=== PATIENT | male | born 1970 | race Caucasian/White ===

== ENCOUNTER 2021-04-12 18:15 | Inpatient (IN) | payer SELFPAY ==
[~2021-04-12] VITALS: Ht 175.3 cm; Wt 80.6 kg
[~2021-04-12 18:15] MED LIST: ASPI325T11 PO; ATOR20TA58 PO; CARV6.2511 PO; CLOP75TA PO; LISI10TA16 PO; LISI20TA18 PO; NITR0.4T24 SL
--- NOTE | 2021-04-12 19:26 | PHYS DOC ---
Past Medical History Past Medical History: Heart Disease, Hypertension Past Surgical History: Other Additional Past Surgical Histo: patient had tip of index finger on the right h and removed Smoking Status: Current Every Day Smoker Alcohol Use: Occasionally Drug Use: Amphetamine, Heroin General Adult EDM: Chief Complaint: ABDOMINAL PAIN HPI: HPI: 50-year-old male with a history of heart disease presents to the emergency department complaining of tearing abdominal pain for the last 2 days is intermittent, feels like a sharp pain and like someone tearing him across his abdomen, does not radiate from the front of his abdomen. Associated with nausea vomiting and diarrhea that has been nonbloody and nonbilious. He also reports he is having difficulty urinating over the last several days. He has never had surgery on his abdomen before. He denies any stool changes. The patient denies fever, chills, chest pain, shortness of breath, cough, recent trauma, or any other complaints. Review of Systems: Review of Systems: Review of systems is otherwise negative except for what was mentioned in the HPI. Heart Score: C/O Chest Pain: No Allergies: Allergies: Allergies Coded Allergies Type Severity Reaction Last Updated Verified Penicillins Allergy Intermediate 07/12/14 Yes codeine Allergy Intermediate 07/12/14 Yes Physical Exam: PE: Constitutional: No acute distress, non-toxic appearance. HENT: Atraumatic, bilateral external ears normal, nose normal. Eyes: PERRLA, EOMI, conjunctiva normal, no discharge. Neck: Normal range of motion, supple, no stridor. Cardiovascular: Heart rate regular rhythm. 2+ radial pulses Lungs & Thorax: No respiratory distress, symmetrical expansion. Bilateral breath sounds clear to auscultation Abdomen: Diffuse abdominal tenderness Skin: Warm, dry. Extremities: No tenderness, no cyanosis, ROM intact, no edema. Neurologic: Alert and oriented X 3, normal motor function, normal sensory function, no focal deficits noted. Non ataxic gait. GCS 15. Psychologic: Affect normal, judgment normal, mood normal. Current Patient Data: Labs: My Orders - SILAS TRONCOSO DO Procedure Category Date Status Time Cbc W Autodiff LAB 04/12/21 Complete 19:26 Ua W Microscopic LAB 04/12/21 Logged 19:26 Lipase LAB 04/12/21 Complete 19:26 Comprehensive LAB 04/12/21 Complete Metabolic Panel 19:26 Drugs Of Abuse Ur LAB 04/12/21 Logged 19:26 Iv Ringers,Lactated PHA 04/12/21 Complete 1000ml (Iv Lactated 19:30 Fentanyl Pf Vial PHA 04/12/21 Complete (Fentanyl 2ml Vial) 20:00 Ondansetron Pf PHA 04/12/21 Complete (Zofran) 20:00 Iohexol 300 Mg/Ml PHA 04/12/21 Complete (Omnipaque 300 Mg/Ml) 19:45 Contrast Given -- PHA 04/12/21 In Process Info Only (Contrast Gi 20:00 12 Lead Ekg EKG 04/12/21 Complete 19:33 Ct Angio Chest Abd CT 04/12/21 Resulted Pelvis 19:33 Iohexol 350 Mg/Ml PHA 04/12/21 Complete (Omnipaque 350 Mg/Ml) 20:15 Troponini LAB 04/12/21 Complete 20:47 Nt-Pro Bnp LAB 04/12/21 Complete 20:47 Chest Ap Only RAD 04/12/21 Resulted 20:54 Sars Cov2 ([place]) LAB 04/12/21 In Process 21:15 Sars Antigen Marilin Rapid LAB 04/12/21 Complete 21:15 Manual Differential LAB 04/12/21 Complete 21:00 Troponini LAB 04/12/21 Logged 21:32 Troponini LAB 04/13/21 Verified 00:32 Troponini LAB 04/13/21 Verified 03:32 Ketamine Hcl In Nacl, PHA 04/12/21 Complete Iso-Osm (Ketamine) 22:00 Fentanyl Pf Vial PHA 04/12/21 Complete (Fentanyl 2ml Vial) 22:00 Fentanyl Pf Vial PHA 04/12/21 Complete (Fentanyl 2ml Vial) 22:00 Iv Normal Saline PHA 04/12/21 In Process 1000ml Bag (Iv Sodium 22:00 Partial LAB 04/12/21 Logged Thromboplastin Time 21:58 Protime With Inr LAB 04/12/21 Logged 21:58 Heparin ROSA 04/12/21 In Process Administration Instruc 21:59 Notify Provider ROSA 04/12/21 In Process 21:59 Hemogram LAB 04/13/21 Verified 05:00 Hemogram LAB 04/15/21 Verified 05:00 Hemogram LAB 04/17/21 Verified 05:[address] Lab ROSA 04/12/21 In Process Order 21:59 Heparin For Iv Bolus PHA 04/12/21 In Process (Heparin Sodium) 22:30 Heparin PHA 04/12/21 In Process 25,000uts/250ml 22:00 Heparin For Iv Bolus PHA 04/12/21 In Process (Heparin Sodium) 22:00 Abdomen Ltd 04/12/21 Logged 21:55 Anti-Coag Monitor By [facility] 04/12/21 In Process Pharmacy (Anti-Coag 22:15 [place] Order ADT 04/12/21 Transmitted 22:03 Code Status CODE 04/12/21 Transmitted 22:03 Vital Signs, Per Unit ROSA 04/12/21 In Process Protocol 22:03 Nothing By Mouth DIET 04/13/21 Transmitted Breakfast Bedrest ROSA 04/12/21 In Process 22:03 Cbc W Autodiff LAB 04/13/21 Verified 06:00 Basic Metabolic Panel LAB 04/13/21 Verified 06:00 Ondansetron Pf PHA 04/12/21 In Process (Zofran) 22:15 Morphine Sulfate PHA 04/12/21 In Process (Morphine Sulfate) 22:15 Consult Physician By CONS 04/12/21 Transmitted Name 22:03 Consult Physician By CONS 04/12/21 Transmitted Name 22:03 Photo Producer [facility] 04/12/21 In Process 22:03 Laboratory Tests Test 04/12/21 20:35 04/12/21 21:00 04/12/21 21:35 Sodium Level 137 mmol/L (136-145) Potassium Level 4.5 mmol/L (3.5-5.1) Chloride Level 102 mmol/L (98-107) Carbon Dioxide Level 22 mmol/L (21-32) Anion Gap 13 (6-14) Blood Urea Nitrogen 37 mg/dL (8-26) Creatinine 1.4 mg/dL (0.7-1.3) Estimated GFR (Cockcroft-Gault) 53.6 BUN/Creatinine Ratio 26 (6-20) Glucose Level 121 mg/dL (70-99) Calcium Level 8.0 mg/dL (8.5-10.1) Total Bilirubin 0.7 mg/dL (0.2-1.0) Aspartate Amino Transf (AST/SGOT) 201 U/L (15-37) Alanine Aminotransferase (ALT/SGPT) 194 U/L (16-63) Alkaline Phosphatase 255 U/L (46-116) Troponin I Quantitative 8.267 ng/mL (0.000-0.055) PP-Zhg-R-Type Natriuretic Peptide 34761 pg/mL (0-124) Total Protein 6.4 g/dL (6.4-8.2) Albumin 2.5 g/dL (3.4-5.0) Albumin/Globulin Ratio 0.6 (1.0-1.7) Lipase 57 U/L (73-393) White Blood Count 14.7 x10^3/uL (4.0-11.0) Red Blood Count 3.77 x10^6/uL (4.30-5.70) Hemoglobin 11.2 g/dL (13.0-17.5) Hematocrit 33.3 % (39.0-53.0) Mean Corpuscular Volume 88 fL (79-100) Mean Corpuscular Hemoglobin 30 pg (25-35) Mean Corpuscular Hemoglobin Concent 34 g/dL (31-37) Red Cell Distribution Width 14.7 % (11.5-14.5) Platelet Count 919 x10^3/uL (140-400) Neutrophils (%) (Auto) 85 % (31-73) Lymphocytes (%) (Auto) 7 % (24-48) Monocytes (%) (Auto) 8 % (0-9) Eosinophils (%) (Auto) 0 % (0-3) Basophils (%) (Auto) 0 % (0-3) Neutrophils # (Auto) 12.5 x10^3/uL (1.8-7.7) Lymphocytes # (Auto) 1.0 x10^3/uL (1.0-4.8) Monocytes # (Auto) 1.2 x10^3/uL (0.0-1.1) Eosinophils # (Auto) 0.0 x10^3/uL (0.0-0.7) Basophils # (Auto) 0.1 x10^3/uL (0.0-0.2) Segmented Neutrophils % 87 % (35-66) Band Neutrophils % 1 % (0-9) Lymphocytes % 9 % (24-48) Monocytes % 3 % (0-10) Platelet Estimate Increased (ADEQUATE) SARS-CoV-2 Antigen (Rapid) Negative (NEGATIVE) Vital Signs: Vital Signs Date Time Temp Pulse Resp B/P (MAP) Pulse Ox O2 Delivery O2 Flow Rate FiO2 04/12/21 21:30 104 22 98 04/12/21 21:15 104 15 97 04/12/21 21:09 104 27 99 04/12/21 21:00 102 19 96 04/12/21 20:45 187 15 94 04/12/21 20:33 104 23 97 04/12/21 20:00 34 99 Nasal Cannula 2.0 04/12/21 19:51 106 32 97 04/12/21 19:49 108 32 97 04/12/21 19:49 32 98 Nasal Cannula 2.0 04/12/21 19:48 187 32 99 04/12/21 19:45 97.8 188 24 144/81 (102) 98 Room Air 97.8 04/12/21 19:30 188 04/12/21 19:21 98.7 187 32 97 98.7 EKG: EK: Supraventricular tachycardia rate of 188, no STEMI, T wave inversions are noted in the precordial leads V1 through V4 3, ST depression aVL. Impression: Supraventricular tachycardia 1953: Post synchronized cardioversion EKG: Sinus tachycardia rate of 109, T wave inversions in V5V6, 2, 3, aVF. No ST elevations, no ectopic beats, normal axis, normal CT, QRS, and QTc intervals. Impression: Sinus tachycardia. interpreted by me, Silas Troncoso D.O. Radiology/Procedures: Radiology/Procedures: Exam: Chest one view INDICATION: Line placement TECHNIQUE: Frontal view of the chest Comparisons: None FINDINGS: Right IJ catheter with tip at the SVC. Heart is mildly enlarged. Pulmonary vessels are within normal limits. The lung and pleural spaces are clear. IMPRESSION: Lines and tubes described above. Electronically signed by: Ana Naik MD (04/12/2021 9:48 PM) PROCEDURE: CT ANGIO CHEST ABD PELVIS Exam: CT of chest, abdomen and pelvis without and with contrast INDICATION: Dissection, tearing abdominal pain TECHNIQUE: Sequential axial images through the chest, abdomen and pelvis obtained before and after the administration of 80 mL of Omni 350 IV contrast. Sagittal and coronal reformatted images were reconstructed from the axial data and reviewed. Exposure: One or more of the following in the visualized dose reduction techniques were utilized for this examination: 1. Automated exposure control 2. Adjustment of the MA and/or KV according to patient size 3. Use of iterative of reconstructive technique Comparisons: Chest x-ray same day FINDINGS: Visualized portions of the thyroid are unremarkable. No enlarged mediastinal lymph nodes are identified. Heart size is normal. No pericardial effusion. Thoracic aorta has a normal course and caliber. Pulmonary artery is mildly enlarged with main pulmonary artery measuring up to 3.8 cm in diameter. Airways are patent. Strandy opacities the dependent portion lungs likely representing atelectasis. No suspicious lung nodules are identified. No pneumothorax. No pleural effusion or thickening. Evaluation of solid abdominal organs is limited secondary to arterial phase of the exam. Liver, spleen, pancreas and adrenals are unremarkable. Gallbladder is partially distended with diffuse wall thickening. No perinephric inflammation or hydronephrosis. No renal or ureteral calculi are identified. Bladder is partially distended and not well evaluated. Prostate is not enlarged. Large and small bowel are unremarkable. Appendix is not identified. No free intra-abdominal air or fluid. No obstruction. Abdominal aorta has a normal course and caliber. Abdominal vasculature is patent. No enlarged intra-abdominal lymph nodes are identified. No suspicious osseous lesions or acute fractures. IMPRESSION: 1. Normal appearance of the aorta without evidence for dissection, aneurysm or intramural hematoma. 2. Diffuse gallbladder wall thickening. Correlate with symptomatology to de termine the need for further evaluation with ultrasound. 3. Small amount of perihepatic ascites which is nonspecific could be reactive to an underlying inflammatory process. Electronically signed by: Ana Naik MD (04/12/2021 9:43 PM) PROCEDURE: ABDOMEN LTD EXAM: ULTRASOUND ABDOMEN LIMITED CLINICAL HISTORY: Reason: RUQ pain, elevated transaminases, thickening on CT / Spl. Instructions: / History: COMPARISON: None available. TECHNIQUE: Limited ultrasound examination of the right upper quadrant of the abdomen was performed. FINDINGS: Liver contour is normal. Hepatopedal flow noted in the portal vein. Gallbladder is contracted with mild gallbladder wall thickening. No pericholecystic fluid or wall thickening. No gallstones. Common bile duct measures 5 mm in diameter. Right kidney measures 11.3 cm in long axis. No hydronephrosis. Visualized portions of aorta and IVC are unremarkable. IMPRESSION: 1. Diffuse gallbladder wall thickening which is nonspecific. No secondary signs for acute cholecystitis. 2. Normal sonographic appearance the liver. 3. No right-sided hydronephrosis Electronically signed by: Ana Naik MD (04/12/2021 11:01 PM) Course & Med Decision Making: Course & Med Decision Making Cardioversion procedure Indication: Unstable supraventricular tachycardia Consent: The patient provided verbal consent for this procedure. Pre-Medication: Fentanyl and ketamine Procedure: The patient was placed in the supine position and the chest area was exposed. The cardioversion pads were applied in the standard manner and configuration. The defibrillator was set on the synchronized mode and charged to 100 joules. A charge was then delivered which resulted in sinus tachycardia. The patient tolerated the procedure well. Complications: none. Central Venous Catheter Insertion Procedure Date/ Time: 04/12/20212029 Confirmed: patient, procedure, side, site, safety procedures followed. Performed by: Silas calderón DO. Informed consent: Emergent Indication: medication delivery, resuscitation. Preparation: sterile preparation of site (with 2% chlorhexidine gluconate, draped to expose affected area, with full drapes, gown, gloves and mask), vessel was identified ultrasound guided, position head turned to left. Anesthesia: local, 1% lidocaine without epinephrine, 3 ml. Technique: percutaneous, Seldinger technique used, ultrasound localization used, location: (Right, internal jugular vein), anterior approach used, catheter type (7 Sinhala, triple lumen catheter), location confirmed via flashback, catheter flushed with saline, dressing applied (catheter secured, semi-permeable transparent dressing applied), monitoring during procedure (blood pressure, cardiac, continuous pulse oximetry). Procedure tolerated: well. Findings: visualized wire in correct position in vein with ultrasound, location confirmed on post procedure chest x-ray in adequate position. Complications at the time of procedure: none. Total time: 30 minutes Patient was seen immediately in the exam room, he appeared to be in moderate distress, complaining of tearing abdominal pain. Nurses were unable to place AC IVs. The patient then went into supraventricular tachycardia with stable blood pressures but appeared unwell, complaining of severe 10/10 abdominal pain. Of note, he also mentioned that he used methamphetamine yesterday and was recently admitted to [facility] for a cardiac work-up and heart attack. A 18-gauge IV was able to be placed in the left external jugular vein. Decision was made to withhold adenosine in this case because we did not have proper IV access to use that medication. Synchronized cardioversion was performed with 100 J and was successful. Ketamine was used for pain control and sedation along with fentanyl. The patient converted to sinus tachycardia. Repeat EKG did not show any ST elevations. I discussed the case with Dr. Morley who agrees with plan for dissection scan, admission. I emergently placed a right internal jugular venous catheter after 1 unsuccessful attempt at placing a peripheral ultrasound- guided IV for the CTA. Patient was then immediately sent to the CT scanner after confirmation of line placement. CT abdomen angio scan negative for dissection, I also discussed the elevated troponin of 8.[address] Morley, does not want to cath emergently, states he will see the patient in the morning. Patient did not have chest pain. US gb ordered due to abnormal findings on CT, us does not show typical findings for cholecystitis. patient was placed on a heparin drip, needed ativan for sedation (he admitted to meth use), and precedex drip. Critical care time was 50 minutes which includes time at bedside, spent in discussion of patient's care with specialists and/or family members, with interpretation of laboratory and/or radiological studies and is exclusive of procedures. Departure Departure Impression: Primary Impression: SVT (supraventricular tachycardia) Additional Impressions: Abdominal pain ACS (acute coronary syndrome) Disposition: ADMITTED INPATIENT (ICU) Admitting Physician: KIMBERLY Ventura) Referrals: LINWOOD JOHNSON DO (PCP) SILAS TRONCOSO DO Apr 12, 2021 19:26
[2021-04-12] MEDS ORDERED: IV RINGERS,LACTATED 1000ML 1,000 ML IV SCH (19:30)
[2021-04-12] MEDS ORDERED: KETAMINE HCL IN NACL, ISO-OSM 50 MG/5 ML SYRINGE ONE (19:44)
[2021-04-12] MEDS ORDERED: IOHEXOL 300 MG/ML 100ML VIAL. IV ONE (19:45)
[2021-04-12] MEDS ORDERED: ONDANSETRON PF 4 MG/2 ML VIAL. IVP ONE (20:00)
[2021-04-12] MEDS ORDERED: fentaNYL PF VIAL 100 MCG/2 ML VIAL IVP ONE ×3 (20:00→22:00)
[2021-04-12] MEDS ORDERED: CONTRAST GIVEN. MC PRN (20:00)
[2021-04-12] MEDS ORDERED: IOHEXOL 350 MG/ML 100 ML VIAL. IV ONE (20:15)
--- NOTE | 2021-04-12 20:32 | EKG ---
[facility] [address] [place] [address] Test Date: 2021-04-12 Test Time: 19:51:32 Pat Name: LUIS PARKER Department: Room: Gender: M Director Of Category Management: : 1970 Requested By: LELAND TRISATN Order Number: [id number] Reading MD: Geronimo Bates MD Measurements Intervals [place] Rate: 109 P: 96 [place]: 140 QRS: 42 QRSD: 98 T: -79 QT: 304 QTc: 411 Interpretive Statements SINUS TACHYCARDIA LEFT ATRIAL ABNORMALITY LVH WITH REPOLARIZATION ABNORMALITY ABNORMAL ECG Electronically Signed On 04-13-2021 18:44:22 CDT by Geronimo Bates MD
[2021-04-12 20:51] LABS: CREATININE 1.4 mg/dL (0.7-1.3); GFR 53.6; POTASSIUM 4.5 mmol/L (3.5-5.1)
[2021-04-12 21:00] LABS: ALBUMIN 2.5 g/dL (3.4-5.0); ALBUMIN/GLOBULIN RATIO 0.6 (1.0-1.7); TOTAL BILIRUBIN 0.7 mg/dL (0.2-1.0); TOTAL PROTEIN 6.4 g/dL (6.4-8.2)
[2021-04-12 21:08] LABS: BASO # 0.1 x10^3/uL (0.0-0.2); BASO % 0 % (0-3); EOS % 0 % (0-3); HEMATOCRIT 33.3 % (39.0-53.0); HEMOGLOBIN 11.2 g/dL (13.0-17.5); LYMPH % 7 % (24-48); MEAN CORPUSCULAR HEMOGLOBIN 30 pg (25-35); MEAN CORPUSCULAR HGB CONC 34 g/dL (31-37); MEAN CORPUSCULAR VOLUME 88 fL (79-100); MONO # 1.2 x10^3/uL (0.0-1.1); MONO % 8 % (0-9); NEUT # 12.5 x10^3/uL (1.8-7.7); NEUT % 85 % (31-73); RED BLOOD COUNT 3.77 x10^6/uL (4.30-5.70); RED CELL DISTRIBUTION WIDTH 14.7 % (11.5-14.5); WHITE BLOOD COUNT 14.7 x10^3/uL (4.0-11.0)
[2021-04-12 21:25] LABS: PLATELET COUNT 919 x10^3/uL (140-400)
[2021-04-12 21:28] LABS: % BANDS 1 % (0-9); % LYMPHS 9 % (24-48); % MONOS 3 % (0-10); % SEGS 87 % (35-66); PLT ESTIMATE INCREASED (ADEQUATE)
--- NOTE | 2021-04-12 21:46 | RAD ---
Exam: CT of chest, abdomen and pelvis without and with contrast INDICATION: Dissection, tearing abdominal pain TECHNIQUE: Sequential axial images through the chest, abdomen and pelvis obtained before and after th e administration of 80 mL of Omni 350 IV contrast. Sagittal and coronal reformatted images were recon structed from the axial data and reviewed. Exposure: One or more of the following in the visualized dose reduction techniques were utilized for this examination: 1. Automated exposure control 2. Adjustment of the MA and/or KV according to patient size 3. Use of iterative of reconstructive technique Comparisons: Chest x-ray same day FINDINGS: Visualized portions of the thyroid are unremarkable. No enlarged mediastinal lymph nodes are identifi ed. Heart size is normal. No pericardial effusion. Thoracic aorta has a normal course and caliber. Pulmon gerard artery is mildly enlarged with main pulmonary artery measuring up to 3.8 cm in diameter. Airways are patent. Strandy opacities the dependent portion lungs likely representing atelectasis. No suspicious lung nodules are identified. No pneumothorax. No pleural effusion or thickening. Evaluation of solid abdominal organs is limited secondary to arterial phase of the exam. Liver, spleen, pancreas and adrenals are unremarkable. Gallbladder is partially distended with diffus e wall thickening. No perinephric inflammation or hydronephrosis. No renal or ureteral calculi are identified. Bladder is partially distended and not well evaluated. Prostate is not enlarged. Large and small bowel are unremarkable. Appendix is not identified. No free intra-abdominal air or fl uid. No obstruction. Abdominal aorta has a normal course and caliber. Abdominal vasculature is patent. No enlarged intra-abdominal lymph nodes are identified. No suspicious osseous lesions or acute fractures. IMPRESSION: 1. Normal appearance of the aorta without evidence for dissection, aneurysm or intramural hematoma. 2. Diffuse gallbladder wall thickening. Correlate with symptomatology to determine the need for furt her evaluation with ultrasound. 3. Small amount of perihepatic ascites which is nonspecific could be reactive to an underlying infla mmatory process. Electronically signed by: Ana Naik MD (04/12/2021 9:43 PM) [facility]
--- NOTE | 2021-04-12 21:51 | RAD ---
Exam: Chest one view INDICATION: Line placement TECHNIQUE: Frontal view of the chest Comparisons: None FINDINGS: Right IJ catheter with tip at the SVC. Heart is mildly enlarged. Pulmonary vessels are within normal limits. The lung and pleural spaces are clear. IMPRESSION: Lines and tubes described above. Electronically signed by: Ana Naik MD (04/12/2021 9:48 PM) [facility]
[2021-04-12] MEDS ORDERED: IV NORMAL SALINE 1000ML BAG 1,000 ML IV ONE (22:00)
[2021-04-12] MEDS ORDERED: KETAMINE HCL IN NACL, ISO-OSM 50 MG/5 ML SYRINGE IV ONE (22:00)
[2021-04-12] MEDS ORDERED: HEPARIN for IV BOLUS 10,000 UNIT/10 ML VIAL. IV PRN (22:00)
[2021-04-12] MEDS ORDERED: ANTI-COAG MONITOR BY PHARMACY. MC PRN (22:15)
[2021-04-12] MEDS ORDERED: MORPHINE SULFATE 4 MG/ML INJ. IVP PRN (22:15)
[2021-04-12] MEDS ORDERED: ONDANSETRON PF 4 MG/2 ML VIAL. IVP PRN (22:15)
[2021-04-12] MEDS ORDERED: HEPARIN for IV BOLUS 10,000 UNIT/10 ML VIAL. IV ONE (22:30)
[2021-04-12 22:52] LABS: BILIRUBIN,URINE SMALL (NEG); CLARITY,URINE CLEAR; COLOR,URINE AMBER; NITRITE,URINE NEGATIVE (NEG); PH,URINE 5.5 (<5.0-8.0); PROTEIN,URINE 30 mg/dL (NEG-TRACE)
[2021-04-12 22:54] LABS: AMORPHOUS SEDIMENT,UR PRESENT /HPF; BACTERIA,URINE 0 /HPF (0-FEW); GRANULAR CASTS,URINE OCCASIONAL /HPF; HYALINE CASTS, URINE MODERATE /HPF; RBC,URINE 0 /HPF (0-2)
[2021-04-12 22:55] LABS: BARBITURATES NEG (NEG); BENZODIAZEPINES POS (NEG); CANNABINOIDS POS (NEG); COCAINE NEG (NEG); METHADONE NEG (NEG); OPIATES POS (NEG); PHENCYCLIDINE NEG (NEG)
[2021-04-12 22:56] LABS: AMPHETAMINE/METHAMPHETAMINE POS (NEG)
--- NOTE | 2021-04-12 23:03 | RAD ---
EXAM: ULTRASOUND ABDOMEN LIMITED CLINICAL HISTORY: Reason: RUQ pain, elevated transaminases, thickening on CT / Spl. Instructions: / History: COMPARISON: None available. TECHNIQUE: Limited ultrasound examination of the right upper quadrant of the abdomen was performed. FINDINGS: Liver contour is normal. Hepatopedal flow noted in the portal vein. Gallbladder is contracted with mild gallbladder wall thickening. No pericholecystic fluid or wall thi ckening. No gallstones. Common bile duct measures 5 mm in diameter. Right kidney measures 11.3 cm in long axis. No hydronephrosis. Visualized portions of aorta and IVC are unremarkable. IMPRESSION: 1. Diffuse gallbladder wall thickening which is nonspecific. No secondary signs for acute cholecysti tis. 2. Normal sonographic appearance the liver. 3. No right-sided hydronephrosis Electronically signed by: Ana Naik MD (04/12/2021 11:01 PM) [facility]
[2021-04-12] MEDS: HEPARIN 25,000UTS/250ML PREMIX 250 ML IV PRN (23:10)
[2021-04-12] MEDS ORDERED: DEXMEDETOMIDINE 400 MCG in IV NORMAL SALINE 100ML 96 ML IV PRN (23:30)
[2021-04-12] MEDS ORDERED: levOFLOXacin PER PHARMACY. MC PRN (23:30)
[2021-04-13] VITALS (10 sets, daily range): BP systolic 102–149; BP diastolic 53–89
--- NOTE | 2021-04-13 02:35 | EKG ---
[facility] [address] [place] [address] Test Date: 2021-04-12 Test Time: 19:39:09 Pat Name: LUIS PARKER Department: Room: Gender: M Fleet Service Manager: : 1970 Requested By: LELAND TRISTAN Order Number: [id number] Reading MD: Gernoimo Bates MD Measurements Intervals [place] Rate: 188 P: NM: QRS: -88 QRSD: 136 T: 65 QT: 278 QTc: 496 Interpretive Statements SUPRAVENTRICULAR TACHYCARDIA lafb rbbb Electronically Signed On 04-13-2021 18:46:42 CDT by Geronimo Bates MD
--- NOTE | 2021-04-13 09:41 | PDOC2 ---
GI CONSULT Date of Service: DATE: 04/13/21 TIME: 09:41 Reason For Consult: abnormal gallbladder findings HPI: HPI: 50 y/o male with mid abdominal "sick" pain daily for 10 years that is worse "with exertion." Sometimes associated w/ n/v but not always. To ER w/ worse pain than usual. Denies precipitating events. SVT, cardioversion in ER. Labs note elevated troponin and BNP. Denies reflux, dysphagia, hematemesis, diarrhea, constipation, hematochezia, melena, change in appetite, or weight loss. No previous EGD or colonoscopy. Denies GB, liver, pancreas, and PUD history. Says he had a heart attack two weeks ago and was admitted to [facility]. Can't tell me additional details - fairly drowsy in ER when I saw this morning. PMH: PMH: CAD w/ stent, HTN FH: Family History: No pertinent hx Social History: Smoke: 1 pack per day ALCOHOL: other (heavy in the past after son in an accident, less now) Drugs: Marijuana, Crystal meth, Other (tox screen +opiates +benzos) ROS: A bit difficult to obtain. GEN: Denies fevers, chills, sweats HEENT: Denies blurred vision, sore throat CV: Denies chest pain RESP: Denies shortness of air, cough GI: Per HPI : Denies hematuria, dysuria ENDO: Denies weight changes NEURO: Denies confusion, dizziness MSK: Denies weakness, joint pain/swelling SKIN: Denies jaundice, pruritus Vitals: Vitals: Vital Signs Date Time Temp Pulse Resp B/P (MAP) Pulse Ox O2 Delivery O2 Flow Rate FiO2 04/13/21 09:31 97 20 98 04/12/21 23:00 Nasal Cannula 2.0 04/12/21 19:45 97.8 144/81 (102) 97.8 Labs: Labs: Laboratory Tests Test 04/12/21 20:35 04/12/21 21:00 04/12/21 21:35 04/12/21 22:42 Sodium Level 137 mmol/L (136-145) Potassium Level 4.5 mmol/L (3.5-5.1) Chloride Level 102 mmol/L (98-107) Carbon Dioxide Level 22 mmol/L (21-32) Anion Gap 13 (6-14) Blood Urea Nitrogen 37 mg/dL (8-26) Creatinine 1.4 mg/dL (0.7-1.3) Estimated GFR (Cockcroft-Gault) 53.6 BUN/Creatinine Ratio 26 (6-20) Glucose Level 121 mg/dL (70-99) Calcium Level 8.0 mg/dL (8.5-10.1) Total Bilirubin 0.7 mg/dL (0.2-1.0) Aspartate Amino Transf (AST/SGOT) 201 U/L (15-37) Alanine Aminotransferase (ALT/SGPT) 194 U/L (16-63) Alkaline Phosphatase 255 U/L (46-116) Troponin I Quantitative 8.267 ng/mL (0.000-0.055) NQ-Vmg-O-Type Natriuretic Peptide 08915 pg/mL (0-124) Total Protein 6.4 g/dL (6.4-8.2) Albumin 2.5 g/dL (3.4-5.0) Albumin/Globulin Ratio 0.6 (1.0-1.7) Lipase 57 U/L (73-393) White Blood Count 14.7 x10^3/uL (4.0-11.0) Red Blood Count 3.77 x10^6/uL (4.30-5.70) Hemoglobin 11.2 g/dL (13.0-17.5) Hematocrit 33.3 % (39.0-53.0) Mean Corpuscular Volume 88 fL (79-100) Mean Corpuscular Hemoglobin 30 pg (25-35) Mean Corpuscular Hemoglobin Concent 34 g/dL (31-37) Red Cell Distribution Width 14.7 % (11.5-14.5) Platelet Count 919 x10^3/uL (140-400) Neutrophils (%) (Auto) 85 % (31-73) Lymphocytes (%) (Auto) 7 % (24-48) Monocytes (%) (Auto) 8 % (0-9) Eosinophils (%) (Auto) 0 % (0-3) Basophils (%) (Auto) 0 % (0-3) Neutrophils # (Auto) 12.5 x10^3/uL (1.8-7.7) Lymphocytes # (Auto) 1.0 x10^3/uL (1.0-4.8) Monocytes # (Auto) 1.2 x10^3/uL (0.0-1.1) Eosinophils # (Auto) 0.0 x10^3/uL (0.0-0.7) Basophils # (Auto) 0.1 x10^3/uL (0.0-0.2) Segmented Neutrophils % 87 % (35-66) Band Neutrophils % 1 % (0-9) Lymphocytes % 9 % (24-48) Monocytes % 3 % (0-10) Platelet Estimate Increased (ADEQUATE) SARS-CoV-2 Antigen (Rapid) Negative (NEGATIVE) Urine Collection Type Unknown Urine Color Lizet Urine Clarity Clear Urine pH 5.5 (<5.0-8.0) Urine Specific [place] >=1.030 (1.000-1.030) Urine Protein 30 mg/dL (NEG-TRACE) Urine Glucose (UA) Negative mg/dL (NEG) Urine Ketones (Stick) Negative mg/dL (NEG) Urine Blood Negative (NEG) Urine Nitrite Negative (NEG) Urine Bilirubin Small (NEG) Urine Urobilinogen Dipstick 1.0 mg/dL (0.2 mg/dL) Urine Leukocyte Esterase Negative (NEG) Urine RBC 0 /HPF (0-2) Urine WBC 1-4 /HPF (0-4) Urine Squamous Epithelial Cells Few /LPF Urine Amorphous Sediment Present /HPF Urine Bacteria 0 /HPF (0-FEW) Urine Hyaline Casts Moderate /HPF Urine Granular Casts Occasional /HPF Urine Mucus Marked /LPF Urine Opiates Screen Pos (NEG) Urine Methadone Screen Neg (NEG) Urine Barbiturates Neg (NEG) Urine Phencyclidine Screen Neg (NEG) Urine Amphetamine/Methamphetamine Pos (NEG) Urine Benzodiazepines Screen Pos (NEG) Urine Cocaine Screen Neg (NEG) Urine Cannabinoids Screen Pos (NEG) Urine Ethyl Alcohol Neg (NEG) Test 04/12/21 22:48 04/13/21 00:15 04/13/21 03:15 04/13/21 05:13 Prothrombin Time 16.0 SEC (11.7-14.0) Prothromb Time International Ratio 1.3 (0.8-1.1) Activated Partial Thromboplast Time 27 SEC (24-38) Troponin I Quantitative 12.091 ng/mL (0.000-0.055) 14.796 ng/mL (0.000-0.055) Heparin Anti-Xa Act, Unfractionated < 0.10 IU/mL (0.30-0.70) Allergies: Coded Allergies: Penicillins (Verified Allergy, Intermediate, 07/12/14) codeine (Verified Allergy, Intermediate, 07/12/14) Medications: Current Medications Medications (Trade) Dose Ordered Sig/Nabeel Route PRN Reason Start Time Stop Time Status Last Admin Dose Admin Ringer's Solution 1,000 ml @ 1,000 mls/hr Q1H IV 04/12/21 19:30 04/12/21 20:29 DC 04/12/21 21:30 Fentanyl Citrate (Fentanyl 2ml Vial) 75 mcg 1X ONCE IVP 04/12/21 20:00 04/12/21 20:01 DC 04/12/21 20:00 Ondansetron HCl (Zofran) 4 mg 1X ONCE IVP 04/12/21 20:00 04/12/21 20:01 DC 04/12/21 22:57 Iohexol (Omnipaque 350 Mg/ml) 100 ml 1X ONCE IV 04/12/21 20:15 04/12/21 20:16 DC 04/12/21 21:18 Ketamine HCl (Ketamine) 30 mg 1X ONCE IV 04/12/21 22:00 04/12/21 22:01 DC 04/12/21 21:53 Fentanyl Citrate (Fentanyl 2ml Vial) 75 mcg 1X ONCE IVP 04/12/21 22:00 04/12/21 22:01 DC 04/12/21 19:49 Sodium Chloride 1,000 ml @ 1,000 mls/hr 1X ONCE IV 04/12/21 22:00 04/12/21 22:59 DC 04/12/21 22:52 Heparin Sodium (Porcine) (Heparin Sodium) 4,000 unit 1X ONCE IV 04/12/21 22:30 04/12/21 22:31 DC 04/12/21 23:04 Heparin Sodium/ Dextrose 250 ml @ 0 mls/hr CONT PRN IV PER PROTOCOL 04/12/21 22:00 04/12/21 23:10 Heparin Sodium (Porcine) (Heparin Sodium) 1,950 unit PRN Q6HRS PRN IV FOR UFH LEVEL LESS THAN 0.2 04/12/21 22:00 9/13/21 06:13 Info (Anti-Coagulation Monitoring By Pharmacy) 1 each PRN DAILY PRN MC PER PROTOCOL 04/12/21 22:15 04/13/21 03:36 Morphine Sulfate (Morphine Sulfate) 4 mg PRN Q2HR PRN IVP SEVERE PAIN 7-10 04/12/21 22:15 04/13/21 22:14 04/12/21 23:00 Lorazepam (Ativan Inj) 2 mg 1X ONCE IVP 04/12/21 23:30 04/12/21 23:31 DC 04/12/21 23:23 Levofloxacin/ Dextrose 150 ml @ 100 mls/hr 1X ONCE IV 04/13/21 00:00 04/13/21 01:29 DC 04/13/21 00:57 Imaging: Imaging: CXR FINDINGS: Right IJ catheter with tip at the SVC. Heart is mildly enlarged. Pulmonary vessels are within normal limits. The lung and pleural spaces are clear. IMPRESSION: Lines and tubes described above. C/A/P CTA FINDINGS: Visualized portions of the thyroid are unremarkable. No enlarged mediastinal lymph nodes are identified. Heart size is normal. No pericardial effusion. Thoracic aorta has a normal course and caliber. Pulmonary artery is mildly enlarged with main pulmonary artery measuring up to 3.8 cm in diameter. Airways are patent. Strandy opacities the dependent portion lungs likely representing atelectasis. No suspicious lung nodules are identified. No pneumothorax. No pleural effusion or thickening. Evaluation of solid abdominal organs is limited secondary to arterial phase of the exam. Liver, spleen, pancreas and adrenals are unremarkable. Gallbladder is partially distended with diffuse wall thickening. No perinephric inflammation or hydronephrosis. No renal or ureteral calculi are identified. Bladder is partially distended and not well evaluated. Prostate is not enlarged. Large and small bowel are unremarkable. Appendix is not identified. No free intra-abdominal air or fluid. No obstruction. Abdominal aorta has a normal course and caliber. Abdominal vasculature is patent. No enlarged intra-abdominal lymph nodes are identified. No suspicious osseous lesions or acute fractures. IMPRESSION: 1. Normal appearance of the aorta without evidence for dissection, aneurysm or intramural hematoma. 2. Diffuse gallbladder wall thickening. Correlate with symptomatology to determine the need for further evaluation with ultrasound. 3. Small amount of perihepatic ascites which is nonspecific could be reactive to an underlying inflammatory process. Abd US FINDINGS: Liver contour is normal. Hepatopedal flow noted in the portal vein. Gallbladder is contracted with mild gallbladder wall thickening. No pericholecystic fluid or wall thickening. No gallstones. Common bile duct measures 5 mm in diameter. Right kidney measures 11.3 cm in long axis. No hydronephrosis. Visualized portions of aorta and IVC are unremarkable. IMPRESSION: 1. Diffuse gallbladder wall thickening which is nonspecific. No secondary signs for acute cholecystitis. 2. Normal sonographic appearance the liver. 3. No right-sided hydronephrosis PE: GEN: NAD HEENT: Atraumatic, PERRL LUNGS: diminished anteriorly HEART: borderline tachycardic ABD: NABS, S/ND/NT EXTREMITY: No edema SKIN: +tattoos NEURO/PSYCH: lethargic, is able to participate in history A/P: A/P: Chronic abdominal pain SVT s/p cardioversion, NSTEMI Leukocytosis, normocytic anemia, thrombocytosis, LEI, abnormal LFTs GB wall thickening CRC screen - none Substance abuse Rapid COVID negative -- Pain probably multi-factorial. Check anemia parameters and Hepatitis panel. Follow LFTs. Check HIDA. Empiric PPI. ROSALES MONSON Apr 13, 2021 09:41
--- NOTE | 2021-04-13 09:50 | PDOC1 ---
History and Physical Date of Admission Date of Admission DATE: 04/13/21 TIME: 09:49 Identification/Chief Complaint Chief Complaint RAPID HEART RATE, ABDOMINAL PAIN ,NOW IMPROVING History of Present Illness History of Present Illness 50-year-old male with a history of heart disease presents to the emergency department complaining of tearing abdominal pain for the last 2 days is intermittent, feels like a sharp pain and like someone tearing him across his abdomen, does not radiate from the front of his abdomen. Associated with nausea vomiting and diarrhea that has been nonbloody and nonbilious. He also reports he is having difficulty urinating troponin i elevated C/W MO went into SVT and was cardioverted in ED. Past Medical History Past Medical History Past Medical History Past Medical History: Heart Disease, Hypertension Past Surgical History: Other Additional Past Surgical Histo: patient had tip of index finger on the right hand removed Smoking Status: Current Every Day Smoker Alcohol Use: Occasionally Drug Use: Amphetamine, Heroin FHX HTN Cardiovascular: HTN Pulmonary: No pertinent hx, Other GI: No pertinent hx Heme/Onc: No pertinent hx Hepatobiliary: No pertinent hx Psych: No pertinent hx Musculoskeletal: low back pain Rheumatologic: No pertinent hx Infectious disease: No pertinent hx Past Surgical History Past Surgical History: Pacemaker Family History Family History: Alcohol Abuse, Coronary Artery Disease, Hypertension Family History: Parent Social History Smoke: <1 pack per day ALCOHOL: social Drugs: Heroin, Crystal meth, Other Current Problem List Problem List Problems Medical Problems: (1) Abdominal pain Status: Acute (2) ACS (acute coronary syndrome) Status: Acute (3) SVT (supraventricular tachycardia) Status: Acute Current Medications Current Medications Current Medications Ringer's Solution 1,000 ml @ 1,000 mls/hr Q1H IV Last administered on 04/12/21at 21:30; Start 04/12/21 at 19:30; Stop 04/12/21 at 20:29; Status DC Fentanyl Citrate (Fentanyl 2ml Vial) 75 mcg 1X ONCE IVP Last administered on 04/12/21at 20:00; Start 04/12/21 at 20:00; Stop 04/12/21 at 20:01; Status DC Ondansetron HCl (Zofran) 4 mg 1X ONCE IVP Last administered on 04/12/21at 22:57; Start 04/12/21 at 20:00; Stop 04/12/21 at 20:01; Status DC Iohexol (Omnipaque 300 Mg/ml) 75 ml 1X ONCE IV ; Start 04/12/21 at 19:45; Stop 04/12/21 at 19:49; Status DC Ketamine HCl (Ketamine) 50 mg STK-MED ONCE .ROUTE ; Start 04/12/21 at 19:44; Stop 04/12/21 at 19:44; Status DC Info (CONTRAST GIVEN -- Rx MONITORING) 1 each PRN DAILY PRN MC SEE COMMENTS; Start 04/12/21 at 20:00; Stop 04/14/21 at 19:59 Iohexol (Omnipaque 350 Mg/ml) 100 ml 1X ONCE IV Last administered on 04/12/21at 21:18; Start 04/12/21 at 20:15; Stop 04/12/21 at 20:16; Status DC Ketamine HCl (Ketamine) 30 mg 1X ONCE IV Last administered on 04/12/21at 21:53; Start 04/12/21 at 22:00; Stop 04/12/21 at 22:01; Status DC Fentanyl Citrate (Fentanyl 2ml Vial) 75 mcg 1X ONCE IVP ; Start 04/12/21 at 22:00; Stop 04/12/21 at 21:56; Status DC Fentanyl Citrate (Fentanyl 2ml Vial) 75 mcg 1X ONCE IVP Last administered on 04/12/21at 19:49; Start 04/12/21 at 22:00; Stop 04/12/21 at 22:01; Status DC Sodium Chloride 1,000 ml @ 1,000 mls/hr 1X ONCE IV Last administered on 04/12/21at 22:52; Start 04/12/21 at 22:00; Stop 04/12/21 at 22:59; Status DC Heparin Sodium (Porcine) (Heparin Sodium) 4,000 unit 1X ONCE IV Last administered on 04/12/21at 23:04; Start 04/12/21 at 22:30; Stop 04/12/21 at 22:31; Status DC Heparin Sodium/ Dextrose 250 ml @ 0 mls/hr CONT PRN IV PER PROTOCOL Last administered on 04/12/21at 23:10; Start 04/12/21 at 22:00 Heparin Sodium (Porcine) (Heparin Sodium) 1,950 unit PRN Q6HRS PRN IV FOR UFH LEVEL LESS THAN 0.2 Last administered on 04/13/21at 06:13; Start 04/12/21 at 22:00 Info (Anti-Coagulation Monitoring By Pharmacy) 1 each PRN DAILY PRN MC PER PROTOCOL Last administered on 04/13/21at 03:36; Start 04/12/21 at 22:15 Ondansetron HCl (Zofran) 4 mg PRN Q8HRS PRN IVP NAUSEA/VOMITING 1ST CHOICE; Start 04/12/21 at 22:15; Stop 04/13/21 at 22:14 Morphine Sulfate (Morphine Sulfate) 4 mg PRN Q2HR PRN IVP SEVERE PAIN 7-10 Last administered on 04/12/21at 23:00; Start 04/12/21 at 22:15; Stop 04/13/21 at 22:14 Lorazepam (Ativan Inj) 1 mg 1X ONCE IVP ; Start 04/12/21 at 23:30; Stop 04/12/21 at 23:31; Status DC Lorazepam (Ativan Inj) 2 mg 1X ONCE IVP Last administered on 04/12/21at 23:23; Start 04/12/21 at 23:30; Stop 04/12/21 at 23:31; Status DC Lorazepam (Ativan Inj) 2 mg 1X ONCE IVP ; Start 04/12/21 at 23:30; Stop 04/12/21 at 23:31; Status DC Levofloxacin/ Dextrose (Levaquin Per Pharmacy) 1 each PRN DAILY PRN MC SEE COMMENTS; Start 04/12/21 at 23:30 Dexmedetomidine HCl 400 mcg/ Sodium Chloride 100 ml @ 0 mls/hr CONT PRN IV PER PROTOCOL; Start 04/12/21 at 23:30 Levofloxacin/ Dextrose 150 ml @ 100 mls/hr 1X ONCE IV Last administered on 04/13/21at 00:57; Start 04/13/21 at 00:00; Stop 04/13/21 at 01:29; Status DC Levofloxacin/ Dextrose 100 ml @ 100 mls/hr Q24H IV ; Start 04/13/21 at 23:00 Pantoprazole Sodium (PROTONIX VIAL for IV PUSH) 40 mg DAILYAC IVP ; Start 04/13/21 at 10:00 Active Scripts Active Nitrostat (Nitroglycerin) 0.4 Mg Tab.subl 0.4 Mg SL PRN Q5MIN PRN Clopidogrel (Clopidogrel Bisulfate) 75 Mg Tablet 75 Mg PO DAILYWBKFT Aspirin Ec (Aspirin) 325 Mg Tablet. 325 Mg PO DAILYWBKFT Atorvastatin Calcium 20 Mg Tablet 20 Mg PO QHS Lisinopril 20 Mg Tablet 20 Mg PO DAILY Carvedilol 6.25 Mg Tablet 6.25 Mg PO BIDWMEALS Reported Lisinopril 10 Mg Tablet 1 Tab PO DAILY Allergies Allergies: Coded Allergies: Penicillins (Verified Allergy, Intermediate, 07/12/14) codeine (Verified Allergy, Intermediate, 07/12/14) ROS Review of System 14 pt ros otherwise neg General: YES: Fatigue PSYCHOLOGICAL ROS: YES: Anxiety, Irritablity, Memory difficulties Eyes: No Blurry vision, No Decreased vision, No Double vision, No Dry eyes, No Excessive tearing, No Eye Pain, No Itchy Eyes, No Loss of vision, No Photophobia, No Scotomata, No Uses contacts, No Uses glasses, No Other HEENT: YES: Heacaches; No: Visual Changes, Hearing change, Nasal congestion, Nasal discharge, Oral lesions, Sinus pain, Sore Throat, Epistaxis, Sneezing, Snoring, Tinnitus, Vertigo, Vocal changes, Other ALLERGY AND IMMUNOLOGY: YES: Hives; No: Insect Bite Sensitivity, Itchy/Watery Eyes, Nasal Congestion, Post Nasal Drip, Seasonal Allergies, Other Hematological and Lymphatic: No: Bleeding Problems, Blood Clots, Blood Tr ansfusions, Brusing, Night Sweats, Pallor, Swollen Lymph Nodes, Other Cardiovascular: yes Palpitations; No Chest Pain, No Orthopnea, No Paroxysmal Noc. Dyspnea, No Edema, No Lt Headedness, No Other Gastrointestinal: Yes Nausea Genitourinary: YES Dysuria; No Frequency, No Incontinence, No Hematuria, No Retention, No Discharge, No Urgency, No Pain, No Flank Pain, No Other, No , No , No , No , No , No , No Musculoskeletal: No Gait Disturbance, No Joint Pain, No Joint Stiffness, No Joint Swelling, No Muscle Pain, No Muscular Weakness, No Pain In:, No Swelling In:, No Other Neurological: Yes Confusion, Yes Memory Loss; No Behavorial Changes, No Bowel/Bladder ControlChng, No Dizziness, No Gait Disturbance, No Headaches, No Impaired Coord/balance, No Numbness/Tingling, No Seizures, No Speech Problems, No Tremors, No Visual Changes, No Weakness, No Other Skin: Yes Dry Skin; No Eczema, No Hair Changes, No Lumps, No Mole Changes, No Mottling, No Nail Changes, No Pruritus, No Rash, No Skin Lesion Changes, No Other, No Acne Physical Exam Physical Exam Constitutional: No acute distress, non-toxic appearance. HENT: Atraumatic, bilateral external ears normal, nose normal. Eyes: PERRLA, EOMI, conjunctiva normal, no discharge. Neck: Normal range of motion, supple, no stridor. Cardiovascular: Heart rate regular rhythm. 2+ radial pulses Lungs & Thorax: No respiratory distress, symmetrical expansion. Bilateral breath sounds clear to auscultation Abdomen: Diffuse abdominal tenderness, IMPROVING NOW SOFT Skin: Warm, dry. Extremities: No tenderness, no cyanosis, ROM intact, no edema. Neurologic: Alert and oriented X 3, normal motor function, normal sensory function, no focal deficits General: Alert, Oriented X3, Cooperative, No acute distress HEENT: Atraumatic, EOMI, Mucous membr. moist/pink Lungs: Clear to auscultation, Normal air movement Heart: S1S2, RRR, no thrills, no gallops, no jug vein distention Breasts: Not examined Abdomen: Soft, No tenderness, No masses Rectal Exam: not examined PELVIC: Examination not indicated Extremities: No cyanosis Neuro: Normal speech, Cranial nerves 3-12 NL Vitals Vitals Vital Signs Date Time Temp Pulse Resp B/P (MAP) Pulse Ox O2 Delivery O2 Flow Rate FiO2 04/13/21 09:31 97 20 98 04/12/21 23:00 Nasal Cannula 2.0 04/12/21 19:45 97.8 144/81 (102) 97.8 Labs Labs Laboratory Tests Test 04/12/21 20:35 04/12/21 21:00 04/12/21 21:35 04/12/21 22:42 Sodium Level 137 mmol/L (136-145) Potassium Level 4.5 mmol/L (3.5-5.1) Chloride Level 102 mmol/L (98-107) Carbon Dioxide Level 22 mmol/L (21-32) Anion Gap 13 (6-14) Blood Urea Nitrogen 37 mg/dL (8-26) Creatinine 1.4 mg/dL (0.7-1.3) Estimated GFR (Cockcroft-Gault) 53.6 BUN/Creatinine Ratio 26 (6-20) Glucose Level 121 mg/dL (70-99) Calcium Level 8.0 mg/dL (8.5-10.1) Total Bilirubin 0.7 mg/dL (0.2-1.0) Aspartate Amino Transf (AST/SGOT) 201 U/L (15-37) Alanine Aminotransferase (ALT/SGPT) 194 U/L (16-63) Alkaline Phosphatase 255 U/L (46-116) Troponin I Quantitative 8.267 ng/mL (0.000-0.055) GQ-Mrv-I-Type Natriuretic Peptide 65702 pg/mL (0-124) Total Protein 6.4 g/dL (6.4-8.2) Albumin 2.5 g/dL (3.4-5.0) Albumin/Globulin Ratio 0.6 (1.0-1.7) Lipase 57 U/L (73-393) White Blood Count 14.7 x10^3/uL (4.0-11.0) Red Blood Count 3.77 x10^6/uL (4.30-5.70) Hemoglobin 11.2 g/dL (13.0-17.5) Hematocrit 33.3 % (39.0-53.0) Mean Corpuscular Volume 88 fL (79-100) Mean Corpuscular Hemoglobin 30 pg (25-35) Mean Corpuscular Hemoglobin Concent 34 g/dL (31-37) Red Cell Distribution Width 14.7 % (11.5-14.5) Platelet Count 919 x10^3/uL (140-400) Neutrophils (%) (Auto) 85 % (31-73) Lymphocytes (%) (Auto) 7 % (24-48) Monocytes (%) (Auto) 8 % (0-9) Eosinophils (%) (Auto) 0 % (0-3) Basophils (%) (Auto) 0 % (0-3) Neutrophils # (Auto) 12.5 x10^3/uL (1.8-7.7) Lymphocytes # (Auto) 1.0 x10^3/uL (1.0-4.8) Monocytes # (Auto) 1.2 x10^3/uL (0.0-1.1) Eosinophils # (Auto) 0.0 x10^3/uL (0.0-0.7) Basophils # (Auto) 0.1 x10^3/uL (0.0-0.2) Segmented Neutrophils % 87 % (35-66) Band Neutrophils % 1 % (0-9) Lymphocytes % 9 % (24-48) Monocytes % 3 % (0-10) Platelet Estimate Increased (ADEQUATE) SARS-CoV-2 Antigen (Rapid) Negative (NEGATIVE) Urine Collection Type Unknown Urine Color Lizet Urine Clarity Clear Urine pH 5.5 (<5.0-8.0) Urine Specific [place] >=1.030 (1.000-1.030) Urine Protein 30 mg/dL (NEG-TRACE) Urine Glucose (UA) Negative mg/dL (NEG) Urine Ketones (Stick) Negative mg/dL (NEG) Urine Blood Negative (NEG) Urine Nitrite Negative (NEG) Urine Bilirubin Small (NEG) Urine Urobilinogen Dipstick 1.0 mg/dL (0.2 mg/dL) Urine Leukocyte Esterase Negative (NEG) Urine RBC 0 /HPF (0-2) Urine WBC 1-4 /HPF (0-4) Urine Squamous Epithelial Cells Few /LPF Urine Amorphous Sediment Present /HPF Urine Bacteria 0 /HPF (0-FEW) Urine Hyaline Casts Moderate /HPF Urine Granular Casts Occasional /HPF Urine Mucus Marked /LPF Urine Opiates Screen Pos (NEG) Urine Methadone Screen Neg (NEG) Urine Barbiturates Neg (NEG) Urine Phencyclidine Screen Neg (NEG) Urine Amphetamine/Methamphetamine Pos (NEG) Urine Benzodiazepines Screen Pos (NEG) Urine Cocaine Screen Neg (NEG) Urine Cannabinoids Screen Pos (NEG) Urine Ethyl Alcohol Neg (NEG) Test 04/12/21 22:48 04/13/21 00:15 04/13/21 03:15 04/13/21 05:13 Prothrombin Time 16.0 SEC (11.7-14.0) Prothromb Time International Ratio 1.3 (0.8-1.1) Activated Partial Thromboplast Time 27 SEC (24-38) Troponin I Quantitative 12.091 ng/mL (0.000-0.055) 14.796 ng/mL (0.000-0.055) Heparin Anti-Xa Act, Unfractionated < 0.10 IU/mL (0.30-0.70) Laboratory Tests Test 04/12/21 20:35 04/12/21 21:00 04/12/21 21:35 04/12/21 22:42 Sodium Level 137 mmol/L (136-145) Potassium Level 4.5 mmol/L (3.5-5.1) Chloride Level 102 mmol/L (98-107) Carbon Dioxide Level 22 mmol/L (21-32) Anion Gap 13 (6-14) Blood Urea Nitrogen 37 mg/dL (8-26) Creatinine 1.4 mg/dL (0.7-1.3) Estimated GFR (Cockcroft-Gault) 53.6 BUN/Creatinine Ratio 26 (6-20) Glucose Level 121 mg/dL (70-99) Calcium Level 8.0 mg/dL (8.5-10.1) Total Bilirubin 0.7 mg/dL (0.2-1.0) Aspartate Amino Transf (AST/SGOT) 201 U/L (15-37) Alanine Aminotransferase (ALT/SGPT) 194 U/L (16-63) Alkaline Phosphatase 255 U/L (46-116) Troponin I Quantitative 8.267 ng/mL (0.000-0.055) BW-Vyy-C-Type Natriuretic Peptide 14030 pg/mL (0-124) Total Protein 6.4 g/dL (6.4-8.2) Albumin 2.5 g/dL (3.4-5.0) Albumin/Globulin Ratio 0.6 (1.0-1.7) Lipase 57 U/L (73-393) White Blood Count 14.7 x10^3/uL (4.0-11.0) Red Blood Count 3.77 x10^6/uL (4.30-5.70) Hemoglobin 11.2 g/dL (13.0-17.5) Hematocrit 33.3 % (39.0-53.0) Mean Corpuscular Volume 88 fL (79-100) Mean Corpuscular Hemoglobin 30 pg (25-35) Mean Corpuscular Hemoglobin Concent 34 g/dL (31-37) Red Cell Distribution Width 14.7 % (11.5-14.5) Platelet Count 919 x10^3/uL (140-400) Neutrophils (%) (Auto) 85 % (31-73) Lymphocytes (%) (Auto) 7 % (24-48) Monocytes (%) (Auto) 8 % (0-9) Eosinophils (%) (Auto) 0 % (0-3) Basophils (%) (Auto) 0 % (0-3) Neutrophils # (Auto) 12.5 x10^3/uL (1.8-7.7) Lymphocytes # (Auto) 1.0 x10^3/uL (1.0-4.8) Monocytes # (Auto) 1.2 x10^3/uL (0.0-1.1) Eosinophils # (Auto) 0.0 x10^3/uL (0.0-0.7) Basophils # (Auto) 0.1 x10^3/uL (0.0-0.2) Segmented Neutrophils % 87 % (35-66) Band Neutrophils % 1 % (0-9) Lymphocytes % 9 % (24-48) Monocytes % 3 % (0-10) Platelet Estimate Increased (ADEQUATE) SARS-CoV-2 Antigen (Rapid) Negative (NEGATIVE) Urine Collection Type Unknown Urine Color Lizet Urine Clarity Clear Urine pH 5.5 (<5.0-8.0) Urine Specific [place] >=1.030 (1.000-1.030) Urine Protein 30 mg/dL (NEG-TRACE) Urine Glucose (UA) Negative mg/dL (NEG) Urine Ketones (Stick) Negative mg/dL (NEG) Urine Blood Negative (NEG) Urine Nitrite Negative (NEG) Urine Bilirubin Small (NEG) Urine Urobilinogen Dipstick 1.0 mg/dL (0.2 mg/dL) Urine Leukocyte Esterase Negative (NEG) Urine RBC 0 /HPF (0-2) Urine WBC 1-4 /HPF (0-4) Urine Squamous Epithelial Cells Few /LPF Urine Amorphous Sediment Present /HPF Urine Bacteria 0 /HPF (0-FEW) Urine Hyaline Casts Moderate /HPF Urine Granular Casts Occasional /HPF Urine Mucus Marked /LPF Urine Opiates Screen Pos (NEG) Urine Methadone Screen Neg (NEG) Urine Barbiturates Neg (NEG) Urine Phencyclidine Screen Neg (NEG) Urine Amphetamine/Methamphetamine Pos (NEG) Urine Benzodiazepines Screen Pos (NEG) Urine Cocaine Screen Neg (NEG) Urine Cannabinoids Screen Pos (NEG) Urine Ethyl Alcohol Neg (NEG) Test 04/12/21 22:48 04/13/21 00:15 04/13/21 03:15 04/13/21 05:13 Prothrombin Time 16.0 SEC (11.7-14.0) Prothromb Time International Ratio 1.3 (0.8-1.1) Activated Partial Thromboplast Time 27 SEC (24-38) Troponin I Quantitative 12.091 ng/mL (0.000-0.055) 14.796 ng/mL (0.000-0.055) Heparin Anti-Xa Act, Unfractionated < 0.10 IU/mL (0.30-0.70) Images Images ATIENT: LUIS PARKER ACCOUNT: [id number] : 1970 LOCATION: ER AGE: 50 SEX: M EXAM STATUS: REG ER ORD. PHYSICIAN: LELAND TRISTAN DO REASON: dissection scan for tearing abdominal pain, OMNI 350 80 ML IV PROCEDURE: CT ANGIO CHEST ABD PELVIS Exam: CT of chest, abdomen and pelvis without and with contrast INDICATION: Dissection, tearing abdominal pain TECHNIQUE: Sequential axial images through the chest, abdomen and pelvis obtained before and after the administration of 80 mL of Omni 350 IV contrast. Sagittal and coronal reformatted images were reconstructed from the axial data a nd reviewed. Exposure: One or more of the following in the visualized dose reduction techniques were utilized for this examination: 1. Automated exposure control 2. Adjustment of the MA and/or KV according to patient size 3. Use of iterative of reconstructive technique Comparisons: Chest x-ray same day FINDINGS: Visualized portions of the thyroid are unremarkable. No enlarged mediastinal lymph nodes are identified. Heart size is normal. No pericardial effusion. Thoracic aorta has a normal course and caliber. Pulmonary artery is mildly enlarged with main pulmonary artery measuring up to 3.8 cm in diameter. Airways are patent. Strandy opacities the dependent portion lungs likely representing atelectasis. No suspicious lung nodules are identified. No pn eumothorax. No pleural effusion or thickening. Evaluation of solid abdominal organs is limited secondary to arterial phase of the exam. Liver, spleen, pancreas and adrenals are unremarkable. Gallbladder is partially distended with diffuse wall thickening. No perinephric inflammation or hydronephrosis. No renal or ureteral calculi are identified. Bladder is partially distended and not well evaluated. Prostate is not enlarged. Large and small bowel are unremarkable. Appendix is not identified. No free i ntra-abdominal air or fluid. No obstruction. Abdominal aorta has a normal course and caliber. Abdominal vasculature is patent. No enlarged intra-abdominal lymph nodes are identified. No suspicious osseous lesions or acute fractures. IMPRESSION: 1. Normal appearance of the aorta without evidence for dissection, aneurysm or intramural hematoma. 2. Diffuse gallbladder wall thickening. Correlate with symptomatology to determine the need for further evaluation with ultrasound. 3. Small amount of perihepatic ascites which is nonspecific could be reactive to an underlying inflammatory process. Electronically signed by: Ana Davenport MD (04/12/2021 9:43 PM) [facility] DICTATED and SIGNED BY: ANA DAVENPORT MD DATE: 04/12/[id number] 0 VTE Prophylaxis Ordered VTE Prophylaxis Devices: No VTE Pharmacological Prophylaxi: No Assessment/Plan Assessment/Plan Impression: SVT (supraventricular tachycardia) //used methamphetamine 04-12 and was recently admitted to [facility] for a cardiac work-up and MO SVT and was cardioverted in ED ACUTE MO Polysubstance abuse, Meth, heroin Abdominal pain Diffuse gallbladder wall thickening / nonspecific. No secondary signs for acute cholecystitis. ACS (acute coronary syndrome) PLAN ADMITTED consult cardiology SVT and was cardioverted in ED Consult GI General surgery consult POOR candidate due to MO, Substance abuse anemia parameters and Hepatitis panel. Follow LFTs. HIDA. Empiric PPI. 34 MIN CC TIME Justifications for Admission Other Justification CHRISTINA BLANCA MD Apr 13, 2021 09:50
[2021-04-13] MEDS ORDERED: PANTOPRAZOLE IV PUSH 40 MG VIAL. IVP SCH (10:00)
--- NOTE | 2021-04-13 10:39 | PDOC2 ---
BRANDON AUGUSTE LEAD SUPPLY WORKER 04/13/21 1039: CARDIAC CONSULT DATE OF CONSULT Date of Consult DATE: 04/13/21 TIME: 10:28 REASON FOR CONSULT Reason for Consult: ACS REFERRING PHYSICIAN Referring Physician: Dr. Troncoso SOURCE Source: Chart review, Patient HISTORY OF PRESENT ILLNESS HISTORY OF PRESENT ILLNESS This is a 50 yo male, with a h/o CAD s/p PCI/stent and polysubstance abuse, who presented with two-day history of tearing abdominal pain. Troponin noted to be elevated upon arrival, which prompted this consult. Also went into SVT and was cardioverted in ED. Patient reports chronic history of mid abdominal pain. Reports this has been occurring intermittent for the last 10 years. Is worse with exertion and usually resolved with rest. Occasionally associated with shortness of breath and nausea, but no vomiting. Thought this pain would resolved following stent placement in 2015, but it has persisted. Over the last couple of days, pain has become more intense. Is associated with diaphoresis, nausea. Reports occasionally palpitations over the last couple of days. Was noted with SVT in ED and was cardioverted. Trop highest 14. He denies any chest pain or pressure. Does report regular meth and marijuana. Last used methamphetamines 2 days ago. Lives at home with mother. Does take some blood pressure medication, but no ASA or statin therapy. Abdominal US and CTA abdomen/pelvis without acute findings. Was recently admitted to [facility]placed by [facility]. Reports having heart attack, but denies any cardiac workup performed. PAST MEDICAL HISTORY Cardiovascular: CAD (s/p PCI/stent), HTN Psych: Addictions PAST SURGICAL HISTORY Past Surgical History: Other (PCI/stent ) FAMILY HISTORY Family History: Heart Disease (father ) SOCIAL HISTORY Smoke: <1 pack per day ALCOHOL: social Drugs: Marijuana, Crystal meth Lives: with Family CURRENT MEDICATIONS CURRENT MEDICATIONS Current Medications Medications (Trade) Dose Ordered Sig/Nabeel Route PRN Reason Start Time Stop Time Status Last Admin Dose Admin Ringer's Solution 1,000 ml @ 1,000 mls/hr Q1H IV 04/12/21 19:30 04/12/21 20:29 DC 04/12/21 21:30 Fentanyl Citrate (Fentanyl 2ml Vial) 75 mcg 1X ONCE IVP 04/12/21 20:00 04/12/21 20:01 DC 04/12/21 20:00 Ondansetron HCl (Zofran) 4 mg 1X ONCE IVP 04/12/21 20:00 04/12/21 20:01 DC 04/12/21 22:57 Iohexol (Omnipaque 350 Mg/ml) 100 ml 1X ONCE IV 04/12/21 20:15 04/12/21 20:16 DC 04/12/21 21:18 Ketamine HCl (Ketamine) 30 mg 1X ONCE IV 04/12/21 22:00 04/12/21 22:01 DC 04/12/21 21:53 Fentanyl Citrate (Fentanyl 2ml Vial) 75 mcg 1X ONCE IVP 04/12/21 22:00 04/12/21 22:01 DC 04/12/21 19:49 Sodium Chloride 1,000 ml @ 1,000 mls/hr 1X ONCE IV 04/12/21 22:00 04/12/21 22:59 DC 04/12/21 22:52 Heparin Sodium (Porcine) (Heparin Sodium) 4,000 unit 1X ONCE IV 04/12/21 22:30 04/12/21 22:31 DC 04/12/21 23:04 Heparin Sodium/ Dextrose 250 ml @ 0 mls/hr CONT PRN IV PER PROTOCOL 04/12/21 22:00 04/12/21 23:10 Heparin Sodium (Porcine) (Heparin Sodium) 1,950 unit PRN Q6HRS PRN IV FOR UFH LEVEL LESS THAN 0.2 04/12/21 22:00 04/13/21 06:13 Info (Anti-Coagulation Monitoring By Pharmacy) 1 each PRN DAILY PRN MC PER PROTOCOL 04/12/21 22:15 04/13/21 03:36 Morphine Sulfate (Morphine Sulfate) 4 mg PRN Q2HR PRN IVP SEVERE PAIN 7-10 04/12/21 22:15 04/13/21 22:14 04/12/21 23:00 Lorazepam (Ativan Inj) 2 mg 1X ONCE IVP 04/12/21 23:30 04/12/21 23:31 DC 04/12/21 23:23 Levofloxacin/ Dextrose 150 ml @ 100 mls/hr 1X ONCE IV 04/13/21 00:00 04/13/21 01:29 DC 04/13/21 00:57 ALLERGIES ALLERGIES: Coded Allergies: Penicillins (Verified Allergy, Intermediate, 07/12/14) codeine (Verified Allergy, Intermediate, 07/12/14) ROS Review of System 14 point ROS conducted with pertinent positives noted above in hPI PHYSICAL EXAM General: Alert, Oriented X3, Cooperative, No acute distress HEENT: Atraumatic Lungs: Other (diminished bases) Heart: Regular rate Abdomen: Soft, No tenderness Extremities: No edema, Normal pulses Skin: No significant lesion, Other (diaphoretic ) Neuro: Sensation intact Psych/Mental Status: Mental status NL, Mood NL MUSCULOSKELETAL: Osteoarthritic changes both hands VITALS/I&O VITALS/I&O: Vital Signs Date Time Temp Pulse Resp B/P (MAP) Pulse Ox O2 Delivery O2 Flow Rate FiO2 04/13/21 09:31 97 20 98 04/12/21 23:00 Nasal Cannula 2.0 04/12/21 19:45 97.8 144/81 (102) 97.8 I & O 04/12/21 04/12/21 04/13/21 15:00 23:00 07:00 Intake Total 1000 ml 1150 ml Balance 1000 ml 1150 ml LABS Lab: Laboratory Tests Test 04/12/21 20:35 04/12/21 21:00 04/12/21 21:35 04/12/21 22:42 Sodium Level 137 mmol/L (136-145) Potassium Level 4.5 mmol/L (3.5-5.1) Chloride Level 102 mmol/L (98-107) Carbon Dioxide Level 22 mmol/L (21-32) Anion Gap 13 (6-14) Blood Urea Nitrogen 37 mg/dL (8-26) H Creatinine 1.4 mg/dL (0.7-1.3) H Estimated GFR (Cockcroft-Gault) 53.6 BUN/Creatinine Ratio 26 (6-20) H Glucose Level 121 mg/dL (70-99) H Calcium Level 8.0 mg/dL (8.5-10.1) L Total Bilirubin 0.7 mg/dL (0.2-1.0) Aspartate Amino Transferase (AST) 201 U/L (15-37) H Alanine Aminotransferase (ALT) 194 U/L (16-63) H Alkaline Phosphatase 255 U/L (46-116) H Troponin I Quantitative 8.267 ng/mL (0.000-0.055) GN-Eqe-D-Type Natriuretic Peptide 20884 pg/mL (0-124) H Total Protein 6.4 g/dL (6.4-8.2) Albumin 2.5 g/dL (3.4-5.0) L Albumin/Globulin Ratio 0.6 (1.0-1.7) L Lipase 57 U/L (73-393) L White Blood Count 14.7 x10^3/uL (4.0-11.0) H Red Blood Count 3.77 x10^6/uL (4.30-5.70) L Hemoglobin 11.2 g/dL (13.0-17.5) L Hematocrit 33.3 % (39.0-53.0) L Mean Corpuscular Volume 88 fL (79-100) Mean Corpuscular Hemoglobin 30 pg (25-35) Mean Corpuscular Hemoglobin Concent 34 g/dL (31-37) Red Cell Distribution Width 14.7 % (11.5-14.5) H Platelet Count 919 x10^3/uL (140-400) *H Neutrophils (%) (Auto) 85 % (31-73) H Lymphocytes (%) (Auto) 7 % (24-48) L Monocytes (%) (Auto) 8 % (0-9) Eosinophils (%) (Auto) 0 % (0-3) Basophils (%) (Auto) 0 % (0-3) Neutrophils # (Auto) 12.5 x10^3/uL (1.8-7.7) H Lymphocytes # (Auto) 1.0 x10^3/uL (1.0-4.8) Monocytes # (Auto) 1.2 x10^3/uL (0.0-1.1) H Eosinophils # (Auto) 0.0 x10^3/uL (0.0-0.7) Basophils # (Auto) 0.1 x10^3/uL (0.0-0.2) Segmented Neutrophils % 87 % (35-66) H Band Neutrophils % 1 % (0-9) Lymphocytes % 9 % (24-48) L Monocytes % 3 % (0-10) Platelet Estimate Increased (ADEQUATE) SARS-CoV-2 Antigen (Rapid) Negative (NEGATIVE) Urine Collection Type Unknown Urine Color Lizet Urine Clarity Clear Urine pH 5.5 (<5.0-8.0) Urine Specific [place] >=1.030 (1.000-1.030) Urine Protein 30 mg/dL (NEG-TRACE) Urine Glucose (UA) Negative mg/dL (NEG) Urine Ketones (Stick) Negative mg/dL (NEG) Urine Blood Negative (NEG) Urine Nitrite Negative (NEG) Urine Bilirubin Small (NEG) Urine Urobilinogen Dipstick 1.0 mg/dL (0.2 mg/dL) Urine Leukocyte Esterase Negative (NEG) Urine RBC 0 /HPF (0-2) Urine WBC 1-4 /HPF (0-4) Urine Squamous Epithelial Cells Few /LPF Urine Amorphous Sediment Present /HPF Urine Bacteria 0 /HPF (0-FEW) Urine Hyaline Casts Moderate /HPF Urine Granular Casts Occasional /HPF Urine Mucus Marked /LPF Urine Opiates Screen Pos (NEG) Urine Methadone Screen Neg (NEG) Urine Barbiturates Neg (NEG) Urine Phencyclidine Screen Neg (NEG) Urine Amphetamine/Methamphetamine Pos (NEG) Urine Benzodiazepines Screen Pos (NEG) Urine Cocaine Screen Neg (NEG) Urine Cannabinoids Screen Pos (NEG) Urine Ethyl Alcohol Neg (NEG) Test 04/12/21 22:48 04/13/21 00:15 04/13/21 03:15 04/13/21 05:13 Prothrombin Time 16.0 SEC (11.7-14.0) H Prothrombin Time INR 1.3 (0.8-1.1) H Activated Partial Thromboplast Time 27 SEC (24-38) Troponin I Quantitative 12.091 ng/mL (0.000-0.055) 14.796 ng/mL (0.000-0.055) Heparin Anti-Xa Act, Unfractionated < 0.10 IU/mL (0.30-0.70) L Laboratory Tests 04/12/21 21:00 Laboratory Tests 04/12/21 20:35 ECHOCARDIOGRAM ECHOCARDIOGRAM <Conclusion> Low normal LV systolic function. EF 50% Wall motion abnormalities as noted above. No significant valvular abnormalities. DATE: 09/01/15 1524 HEART CATH HEART CATH COMMENTS Lm without significant disease. 30-40% prox LAD narrowing. LAD mid with 60- 70% lesion . finally there was a high-grade lesion around the apical area. There was a 30-40 narrowing at origin of 1st OM Moderate sized 1st diagonal has diffuse disease with a 70-80% distal narrowing. There is a somewhat long 80- 90% narrowing at the origin of a small PDA. Conclusion Succefull PTCA/Stent for a subtotaled long narrowing inthe Proxand mid 2nd OM using a 2.25x 18 mm BMS mid-vessel and 2.25 x 8 mm Prox. SANDRA 1-2 flow returned to SANDRA 3 flow. No significant disease in LM . 30-40% Prox-lesion and 60-70% Mid narrowing and high-grade lesion in small apical segment. Diffuse disease inmodest sized 1st diag with 60-70% distal narrowing. Dominant Circ. with 30-40% osteal 1st om narrowing. long 80-90% narrowing [id number] Mild Inf-lat hypokinesia of LV. EF - 50% N0 significant MR. Recommendations Smoking Cessation Aggressive Medical Therapy DATE: 09/01/15 1404 ASSESSMENT/PLAN ASSESSMENT/PLAN 1. Acute on chronic abdominal pain; US without acute findings 2. NSTEMI; trop highest 14. on heparin gtt. CTA negative for dissection 3. Arrhythmia; SVT s/p CV in ED 4. CAD s/p PCI/stent to OM 2015 as noted above 5. Hypertension; controlled 6. LEI 7. Elevated LFTs 8. Leukocytosis, thrombocytosis 10. Polysubstance abuse; UDS + methamphetamines, marijuana, opiates, and benzos Recommendations Repeat EKG Trend trop to note peak ASA therapy Continue heparin gtt. Obtain records from recent inpatient hospitalization Echo to assess LV systolic function Will need further ischemic evaluation given significant risk factors in the setting of NSTEMI Further pending above. NICOLE LANDON MD 04/13/21 7: CARDIAC CONSULT ASSESSMENT/PLAN ASSESSMENT/PLAN Pt. seen and examined. Agree with above SUPERVISOR METAL FABRICATING note. Discussed with family. See cath report for full details. BRANDON AUGUSTE APRN Apr 13, 2021 10:39 NICOLE LANDON MD Apr 13, 2021 18:47
[2021-04-13] MEDS ORDERED: ASPIRIN ENTERIC COATED 81 MG TABLET.DR. PO SCH (10:45)
--- NOTE | 2021-04-13 11:16 | EKG ---
[facility] [address] [place] [address] Test Date: 2021-04-13 Test Time: 11:06:48 Pat Name: LUIS PARKER Department: Room: ED HOLD 1 Gender: M Board Operator: : 1970 Requested By: BRANDON AUGUSTE Order Number: [id number] Reading MD: Geronimo Bates MD Measurements Intervals [place] Rate: 99 P: 34 AL: 112 QRS: 15 QRSD: 92 T: 240 QT: 342 QTc: 438 Interpretive Statements SINUS RHYTHM LEFT ATRIAL ABNORMALITY CONSIDER PRIOR INFERIOR INFARCT LATERAL NON-SPECIFIC ST/T CHANGES Electronically Signed On 04-13-2021 11:52:06 CDT by Geronimo Bates MD
[2021-04-13 11:29] LABS: CALCIUM 7.8 mg/dL (8.5-10.1); CREATININE 1.2 mg/dL (0.7-1.3); GFR 64.1; POTASSIUM 4.4 mmol/L (3.5-5.1)
[2021-04-13 11:37] LABS: CHOLESTEROL/HDL RATIO 2.3
[2021-04-13] MEDS ORDERED: 0.9 % SODIUM CHLORIDE 10 ML DISP.SYRIN. IV PRN (11:45)
[2021-04-13] MEDS ORDERED: ONDANSETRON PF 4 MG/2 ML VIAL. IVP PRN (11:45)
[2021-04-13] MEDS ORDERED: BISACODYL 10 MG SUPP.RECT. PR PRN (11:45)
[2021-04-13] MEDS ORDERED: MAG HYDROX/ALUMINUM HYD/SIMETH 30 ML ORAL.SUSP PO PRN (11:45)
[2021-04-13 12:57] LABS: BASO # 0.1 x10^3/uL (0.0-0.2); BASO % 1 % (0-3); EOS % 0 % (0-3); HEMOGLOBIN 10.8 g/dL (13.0-17.5); LYMPH # 1.2 x10^3/uL (1.0-4.8); LYMPH % 11 % (24-48); MEAN CORPUSCULAR HEMOGLOBIN 30 pg (25-35); MEAN CORPUSCULAR HGB CONC 34 g/dL (31-37); MEAN CORPUSCULAR VOLUME 89 fL (79-100); MONO # 0.8 x10^3/uL (0.0-1.1); MONO % 8 % (0-9); NEUT # 8.7 x10^3/uL (1.8-7.7); NEUT % 80 % (31-73); PLATELET COUNT 818 x10^3/uL (140-400); RED CELL DISTRIBUTION WIDTH 15.1 % (11.5-14.5); WHITE BLOOD COUNT 10.9 x10^3/uL (4.0-11.0)
[2021-04-13] MEDS ORDERED: fentaNYL PF VIAL 100 MCG/2 ML VIAL ONE (13:07)
[2021-04-13] MEDS ORDERED: MIDAZOLAM HCL/PF 2 MG/2 ML VIAL. ONE ×2 (13:08→14:40)
[2021-04-13] MEDS ORDERED: NITROGLYCERIN 200 MCG/2 ML SYRINGE FOR CATH/VASC LAB. ONE ×3 (13:08→14:40)
[2021-04-13] MEDS ORDERED: VERAPAMIL 5 MG/2 ML VIAL. ONE (13:08)
[2021-04-13] MEDS ORDERED: HEPARIN for IV BOLUS 10,000 UNIT/10 ML VIAL. ONE ×2 (13:08→14:44)
[2021-04-13] MEDS ORDERED: LIDOCAINE 1% PF 2 ML VIAL. ONE (13:09)
[2021-04-13] MEDS ORDERED: IODIXANOL 320 MG/ML 100 ML VIAL. ONE ×4 (13:12→15:57)
--- NOTE | 2021-04-13 13:19 | CONS ---
DATE OF CONSULTATION: 04/13/2021 PULMONARY CONSULTATION ATTENDING PHYSICIAN: Yaw Mcneill MD. REASON FOR CONSULTATION: COPD. HISTORY OF PRESENT ILLNESS: The patient is a 50-year-old male who came to the Emergency Department with severe abdominal pain. The patient has a history of tobaccoism since age 12 and continues to smoke cigarettes. The patient underwent imaging study including CTA chest. I have reviewed the CT chest. The patient has no evidence of any dissection or aneurysm. There is diffuse gallbladder thickening. There is no evidence of any consolidation or infiltrates. He is currently requiring minimal amount of oxygen at 2 liters. He admits to marijuana use as well. His platelet counts were 919 and his troponin was 15.9. I have been asked to see him for further evaluation. PAST MEDICAL HISTORY: Significant for history of tobaccoism, likely underlying COPD. History of CAD status post PCI and stent, and hypertension. PAST SURGICAL HISTORY: Unknown. SOCIAL HISTORY: History of tobaccoism since age 12 along with marijuana and crystal meth. FAMILY HISTORY: Heart disease. ALLERGIES: PENICILLIN AND CODEINE. MEDICATIONS: Given in the ER were reviewed including antibiotics. REVIEW OF SYSTEMS: A 10-point system obtained. The patient is not the best historian. PHYSICAL EXAMINATION: VITAL SIGNS: Stable. Pulse ox is 99% on 2 liters, afebrile. NECK: Supple. LUNGS: Clear. CARDIOVASCULAR: With a regular rate. ABDOMEN: Mildly tender. EXTREMITIES: With no pitting edema. LABORATORY DATA: Reviewed. Troponin is 15.9. Urine drug screen positive for meth, opiates as well as marijuana and benzos. COVID rapid is negative. BUN 32, creatinine 1.2. INR 1.3. His platelets 919. IMPRESSION: 1. Underlying chronic obstructive pulmonary disease, clinically compensated. 2. Markedly increased troponin. Cardiology is following. 3. Thrombocytosis, could be reactive. 4. Substance abuse including opiates, marijuana, crystal meth. 5. Abdominal pain, no obvious pathology on CT abdomen. RECOMMENDATIONS: 1. From a Pulmonary standpoint, he is stable. 2. Follow Cardiology recommendations regarding increased troponin. 3. IV hydration. 4. Not much to add from a Pulmonary standpoint. 5. We will see him on an as needed basis. Please call for any further recommendations. 6. d/w . He plans to do cath today. CARLEY/BRITNEY DR: CARLEY/elvis TID: [id number] DELMY
[2021-04-13] MEDS ORDERED: ONDANSETRON PF 4 MG/2 ML VIAL. ONE (14:13)
[2021-04-13] MEDS ORDERED: KETAMINE HCL IN NACL, ISO-OSM 50 MG/5 ML SYRINGE ONE (14:40)
[2021-04-13] MEDS ORDERED: PHENYLEPHRINE in 0.9% NACL PF 1 MG/10 ML SYRINGE. IV ONE ×2 (14:58→15:15)
[2021-04-13] MEDS ORDERED: fentaNYL PF VIAL 100 MCG/2 ML VIAL IV ONE (15:00)
[2021-04-13] MEDS ORDERED: HEPARIN for IV BOLUS 10,000 UNIT/10 ML VIAL. IART ONE (15:00)
[2021-04-13] MEDS ORDERED: LIDOCAINE 1% PF 2 ML VIAL. INJ ONE (15:00)
[2021-04-13] MEDS ORDERED: NITROGLYCERIN 200 MCG/2 ML SYRINGE FOR CATH/VASC LAB. IART ONE (15:00)
[2021-04-13] MEDS ORDERED: HEPARIN for IV BOLUS 10,000 UNIT/10 ML VIAL. IV ONE (15:00)
[2021-04-13] MEDS ORDERED: MIDAZOLAM HCL/PF 2 MG/2 ML VIAL. IV ONE (15:00)
[2021-04-13] MEDS ORDERED: ONDANSETRON PF 4 MG/2 ML VIAL. IVP ONE (15:00)
[2021-04-13] MEDS ORDERED: NITROGLYCERIN 200 MCG/2 ML SYRINGE FOR CATH/VASC LAB. ICAR ONE (15:00)
[2021-04-13] MEDS ORDERED: VERAPAMIL 5 MG/2 ML VIAL. IART ONE (15:00)
[2021-04-13] MEDS ORDERED: PROPOFOL 10 MG/ML (20ML) VIAL. IV ONE ×2 (15:00→16:00)
[2021-04-13] MEDS ORDERED: IODIXANOL 320 MG/ML 100 ML VIAL. IART ONE (15:00)
[2021-04-13] MEDS ORDERED: EPINEPHrine SYRINGE 1 MG/10 ML SYRINGE ONE ×2 (15:11→18:00)
[2021-04-13] MEDS ORDERED: NOREPINEPHRINE VIAL 8 MG in IV DEXTROSE 5% 250 ML IV ONE (15:15)
[2021-04-13] MEDS: EPINEPHrine VIAL 5 MG in IV NORMAL SALINE 250ML 250 ML IV PRN ×2 (15:45→19:50)
[2021-04-13] MEDS ORDERED: CONTRAST GIVEN. MC PRN (15:45)
[2021-04-13] MEDS ORDERED: ROCURONIUM 50 MG/5 ML VIAL. ONE (16:00)
--- NOTE | 2021-04-13 17:00 | NUR ---
Pt to Procurement Director from ED. Pt appeared sleepy when arrived, would answer questions appropriately with prompting. During cath pt became anxious and not responding to redirection, anesthesia called for better sedation. Later in cath, pt became hemodynamically unstable and decision made to intubate. Pt continued to be unstable, balloon pump inserted for further support, Dr Bates continued to attempt to intervene throughout. Pt stabilized with mult meds and balloon pump remains in place. Pt to ICU. Family contacted by Dr Szymanski, and situation explained, family arrived at hospital and brought to Procurement Director. HENRIETTA LARIOS
--- NOTE | 2021-04-13 17:51 | CARD ---
MR#: [id number] Date of Study: 04/13/2021 Ordering Physician: BRANDON AUGUSTE, Referring Physician: BRANDON AUGUSTE, Tech: Eagle Carpenter [facility] [email or web address]] APPROVED REPORT EXAM: Two-dimensional and M-mode echocardiogram with Doppler and color Doppler. Other Information Quality : GoodHR: 98bpm Rhythm : NSR INDICATION Cardiac Disease: CAD Chest pressure RISK FACTORS Hypertension Smoking 2D DIMENSIONS Left Atrium(2D)5.6 (1.6-4.0cm)IVSd1.0 (0.7-1.1cm) Aortic Root(2D)3.0 (2.0-3.7cm)LVDd5.3 (3.9-5.9cm) LVOT Diameter2.0 (1.8-2.4cm)PWd1.0 (0.7-1.1cm) LVDs4.7 (2.5-4.0cm)FS (%) 11.3 % SV32.6 mlLVEF(%)24.4 (>50%) Aortic Valve AoV Peak Les.134.8cm/sAoV VTI21.7cm AO Peak GR.7.3mmHgLVOT VTI 10.00cm AO Mean GR.5mmHg Mitral Valve MV E Bjwhwbjj426.3cm/sMV E Peak Gr.120mmHg MV DECEL [id number] A Fdkditly38.3cm/s MV E Mean Gr.4mmHgE/A Ratio2.3 TDI Lateral E' P. V6.37cm/sMedial E' P. V3.99cm/s E/Lateral E'18.1E/Medial E'28.9 Tricuspid Valve TR P. Yxpkxbbe424to/sTR Peak Gr.37mmHg Pulmonary Vein S1 Xtzgceef28.4cm/sS2 Nvswcfjz07.73cm/s D2 Crtqrsvi64.7cm/s LEFT VENTRICLE The left ventricle is normal size. There is normal left ventricular wall thickness. The ejection frac tion is moderately to severely impaired. The Ejection Fraction is 30-35%. The basal to distal inferio r wall is severely hypokinetic. The remainder of the LV is moderately hypokinetic. Tissue Doppler kamilah ging reveals abnormal left ventricular diastolic dysfunction. No left ventricle thrombus noted on thi s study. There is no ventricular septal defect visualized. There is no left ventricular aneurysm. The re is no mass noted in the left ventricle. RIGHT VENTRICLE The right ventricle is normal size. There is normal right ventricular wall thickness. RV Systolic fun ction is mildly reduced. Tapse is reduced at .77 cm. ATRIA The left atrium is moderately dilated. The right atrium is mildly dilated. The interatrial septum is intact with no evidence for an atrial septal defect or patent foramen ovale as noted on 2-D or Dopple r imaging. AORTIC VALVE The aortic valve is mildly sclerotic. Doppler and Color Flow revealed no significant aortic regurgita tion. There is no significant aortic valvular stenosis. There is no aortic valvular vegetation. MITRAL VALVE Restricted posterior mitral leaflet. There is no evidence of mitral valve prolapse. There is no carmen l valve stenosis. Doppler and Color-flow revealed severe mitral regurgitation. TRICUSPID VALVE The tricuspid valve is normal in structure and function. Doppler and Color Flow revealed mild tricusp id regurgitation. The PA pressure was estimated at 50 mmHg. There is no tricuspid valve prolapse or v egetation. There is no tricuspid valve stenosis. PULMONIC VALVE Doppler and Color Flow revealed no pulmonic valvular regurgitation. There is no pulmonic valvular kevin nosis. GREAT VESSELS The aortic root is normal in size. The ascending aorta is normal in size. The IVC is dilated at 2.8cm with blunted inspiratory response. PERICARDIAL EFFUSION There is no pleural effusion. There is no evidence of significant pericardial effusion. Critical Notification Critical Value: No <Conclusion> The ejection fraction is moderately to severely impaired. The Ejection Fraction is 30-35%. The basal to distal inferior wall is severely hypokinetic. The remainder of the LV is moderately hypo kinetic. Doppler and Color-flow revealed severe mitral regurgitation. Doppler and Color Flow revealed mild tricuspid regurgitation. The PA pressure was estimated at 50 mmH g. Signed by : Geronimo Bates, Electronically Approved : 04/13/2021 17:51:21
[2021-04-13] MEDS ORDERED: AMIODARONE 150 MG in IV DEXTROSE 5% 100ML 100 ML IV ONE (18:00)
[2021-04-13] MEDS ORDERED: EPINEPHrine SYRINGE 1 MG/10 ML SYRINGE IV ONE (18:00)
--- NOTE | 2021-04-13 18:15 | CARD ---
MR#: [id number] Date of Study: 04/13/2021 Ordering Physician: NICOLE BATES, Referring Physician: NICOLE BATES, Tech: RT Ana(R)() APPROVED REPORT Technologist: RT Ana(R)() Nurse: Nicole Palma RN Procedure(s) performed: FLUORO TIME: 38.1 MIN DOSE: 247 Gycm2 Mod Sed: 43 min Contrast: 360ml Coronary angiography Complex balloon angioplasty of the obtuse marginal Complex PCI of the mid left circumflex Intra-aortic balloon pump placement CASE TECHNIQUE IV conscious sedation was used throughout procedure with appropriate monitoring and was performed in the presence of a registered nurse who was an independent trained observer other than the physician p erforming the procedure. During this case, Fluoroscopy and Iso-osmolar contrast were used for imaging . Specimen(s) Removed: N/A Estimated Blood loss: 30 cc's. PROCEDURE NARRATIVE Clinical information: 50-year-old male presented to the hospital in the setting of worsening abdominal pain. Initial evalu ation in the ER did not reveal any evidence of aortic pathology. He was subsequently noted to have s ignificantly elevated troponin which was continuing to uptrend and in the setting the decision was ma de to take the patient to the cardiac catheterization laboratory for further evaluation. Of note vera or to transfer to the cardiac catheterization laboratory the patient had significant diaphoresis and overall had looked very ill clinically. Informed consent was obtained from the patient as well as hi s mother prior to cardiac catheterization. Procedure details: Upon arrival to the Out Of School Hours Care Worker the patient was diaphoretic and alert and oriented to person and place b ut not time. The right wrist and right groin were prepped and draped in usual sterile fashion. The patient was previously on a heparin drip. Under 1% lidocaine local anesthesia a 6 Estonian sheath was placed in the right radial artery. Diagnostic angiography was then performed with a 6 Estonian TIG cat heter. Findings: Aorta: 140/80 Coronary angiography: Left main: Near separate ostia of the LAD and circumflex. LAD is a moderate caliber vessel with diffuse disease of up to 50%. There is a mid to distal focal 7 0% stenosis. The vessel wraps around the apex. D1 is a moderate caliber vessel with mild luminal irregularities Left circumflex is a large caliber dominant vessel with a proximal 100% occlusion OM1 is a moderate to large caliber vessel with a proximal diffuse 70% stenosis OM 2 is a small caliber vessel with on a percent occlusion at the site of previously placed stents L PDA is a small caliber vessel with moderate diffuse disease of up to 50%. RCA is a small caliber nondominant vessel with severe diffuse disease of up to 70%. Interventional technique: Based on the patient's presenting symptoms, escalating cardiac enzymes and angiographic findings a de cision was made to intervene on the left circumflex occlusion. It was felt that this was likely the culprit based on review of prior angiograms. Heparin was used for anticoagulation. Through a 6 Fren EBU 3.5 guide catheter a Student[employer]underwater wire was initially unable to traverse the left circumflex occlus ion. Ultimately a marine pilot 200 wire was able to cross the chronic total occlusion. A safety wire was a lso placed in the first obtuse marginal. Initial balloon angioplasty with a 2.0 x 10 mm balloon of criss be mid circumflex distal to the first obtuse marginal revealed significant thrombus burden in the cir cumflex. Subsequently was also noted that the first obtuse marginal had a wire related dissection. The first obtuse marginal was then treated with a 2.0 x 15 mm balloon but despite aggressive balloon angioplasty there was persistent occlusion of this vessel. Initial balloon angioplasty did reveal th at the wire was true lumen distally. At this time the patient continued to deteriorate and required initiation of anesthesia support. Ultimately, the patient was intubated and sedated. Multiple repeat attempts at angioplasty of the fi rst obtuse marginal and circumflex were made. Flow was restored in the circumflex vessel but due to no reflow issues the first obtuse marginal was unable to be recanalized. The patient had several epi sodes of tachyarrhythmia which required cardioversion and he was also initiated on vasopressor therap y. The patient also required CPR briefly to maintain a perfusion pressure. Decision was then made to place a intra-aortic balloon pump for cardiopulmonary support. A 7.5 Frenc h 50 cc intra-aortic balloon pump was placed successfully via the right common femoral artery. Adequ ate one-to-one augmentation was initiated. With persistent balloon angioplasty the mid circumflex spear d SANDRA II flow. Due to the patient's significant arrhythmia with complete heart block which resolved with improvement in flow of the left circumflex given that it was a dominant vessel a decision was u ltimately made to place a stent to help improve patency. Unfortunately, despite stent placement due to lack of adequate distal flow the patient had stent thrombosis. The patient at case completion was in critical condition on 2 vasopressors and intra-aortic balloon p ump support. Given the patient's age a brief discussion was also held with the heart failure cardiol ogist through [facility] and due to the patient's ongoing active drug use history it was felt that he was not an appropriate candidate for transfer and consideration of ECMO or destination LVAD t herapy. The right groin sheath was sutured to the skin. SANDRA Flow SANDRA Flow (Pre-Intervention): SANDRA-0 SANDRA Flow (Post-Intervention): SANDRA-0 SANDRA Flow SANDRA Flow (Pre-Intervention): SANDRA-0 SANDRA Flow (Post-Intervention): SANDRA-0 Conclusion 1. Subacute inferolateral high risk non-STEMI 2. Severe three-vessel coronary artery disease 3. Severe ischemic cardiomyopathy with severe mitral regurgitation 4. Unsuccessful percutaneous balloon angioplasty of the left circumflex 5. Intra-aortic balloon pump placement for cardiogenic shock 6. Acute on chronic respiratory failure requiring mechanical ventilation Recommendations 1. We will continue heparin therapy and will discuss with the patient's family regarding goals of ca re. Signed by : Nicole Bates, Electronically Approved : 04/13/2021 18:14:51
[2021-04-13] MEDS ORDERED: HEPARIN 25,000UTS/250ML PREMIX 250 ML IV PRN (18:30)
[2021-04-13] MEDS ORDERED: HEPARIN for IV BOLUS 10,000 UNIT/10 ML VIAL. IV PRN (18:30)
[2021-04-13] MEDS ORDERED: AMIODARONE 450 MG in IV DEXTROSE 5% 250 ML IV PRN (18:30)
[2021-04-13] MEDS: HEPARIN 25,000UTS/250ML PREMIX 250 ML IV PRN (18:45)
[2021-04-13] MEDS ORDERED: DOCUSATE SODIUM 100 MG CAPSULE. PO SCH (21:00)
--- NOTE | 2021-04-13 23:32 | NUR ---
Nursing note: At around 2029 IABP aug alarm going off, patient went into a complete heart block. blood pressures low. maxed on dopamine and epi gtts. Shortly after iabp paused and no pressure. Patient went PEA, confirmed with Chanda LARIOS, Time of 2055. Notified mother, and doctors.
== END 2021-04-13 20:56 | DRG 270 ==
LOC: ER 18:15 → ED HOLD 21:56 → 2 SOUTH 04-13 14:03 → 6 SOUTH 04-13 14:18 → 1 WEST ICU 04-13 17:15
PROVIDERS: ADMIT Student in an Organized Health Care Education/Training Program; ATTEND Student in an Organized Health Care Education/Training Program
PROC: 02HV33Z Insertion of Infusion Device into Superior Vena Cava, Percutaneous Approach (ICD-10-PCS; 2021-04-12)
PROC: B548ZZA Ultrasonography of Superior Vena Cava, Guidance (ICD-10-PCS; 2021-04-12)
PROC: 5A02210 Assistance with Cardiac Output using Balloon Pump, Continuous (ICD-10-PCS; principal; 2021-04-13)
PROC: 027135Z Dilation of Coronary Artery, Two Arteries with Two Drug-eluting Intraluminal Devices, Percutaneous Approach (ICD-10-PCS; 2021-04-13)
PROC: 5A2204Z Restoration of Cardiac Rhythm, Single (ICD-10-PCS; 2021-04-13)
PROC: 5A1935Z Respiratory Ventilation, Less than 24 Consecutive Hours (ICD-10-PCS; 2021-04-13)
DX: I21.4 Non-ST elevation (NSTEMI) myocardial infarction (principal); J96.20 Acute and chronic respiratory failure, unspecified whether with hypoxia or hypercapnia; I47.1 Supraventricular tachycardia; N17.9 Acute kidney failure, unspecified; D72.829 Elevated white blood cell count, unspecified; F17.210 Nicotine dependence, cigarettes, uncomplicated; G89.29 Other chronic pain; I10 Essential (primary) hypertension; I25.10 Atherosclerotic heart disease of native coronary artery without angina pectoris; J44.9 Chronic obstructive pulmonary disease, unspecified; K21.9 Gastro-esophageal reflux disease without esophagitis; R79.89 Other specified abnormal findings of blood chemistry; F19.10 Other psychoactive substance abuse, uncomplicated; D64.9 Anemia, unspecified; R94.5 Abnormal results of liver function studies; I25.5 Ischemic cardiomyopathy; I25.2 Old myocardial infarction; Z82.49 Family history of ischemic heart disease and other diseases of the circulatory system; Z95.5 Presence of coronary angioplasty implant and graft; Z88.0 Allergy status to penicillin; Z88.5 Allergy status to narcotic agent
CPT/HCPCS: 33967; 36415; 36556; 71045; 71275; 74174; 76705; 80048; 80053; 80061; 80307; 81001; 82607; 83540; 83550; 83690; 83880; 84443; 84484; 85007; 85025; 85347; 85520; 85610; 85730; 86705; 86709; 86803; 87340; 87426; 92921; 92928; 93005; 93306; 93454; 96361; 96374; 96375; 96376; 99152; 99153; C1725; C1769; C1874; C1894; J0171; J0282; J1265; J1644; J1956; J2060; J2250; J2270; J2370; J2405; J2704; J3010; J3490; J7030; J7050; J7060; J7120; Q9967; U0003; U0005; 99291-25